=== PATIENT | female | born 1955 | race Caucasian/White ===

== ENCOUNTER 2025-02-08 09:31 | Outpatient (CLI) | payer OTHER, MEDICAID ==
[2025-02-08 10:37] LABS: Actual Bicarbonate (HCO3a) 22.7 mEq/L (22-28); Analyzer IN Cardio CS ER; Base Excess (BEa) -2.0 mEq/L (-2.0 to +3.0); CO2 Tension 38.3 mmHg (35.0-45.0); Calcium, Ionized (arterial) 1.15 mmol/L (1.12-1.30); Hematocrit-ABG 34 % (36.0-47.0); Hemoglobin (Hb) 11.7 g/dL (12.0-16.0); O2 Tension (PaO2), arterial 79.4 mmHg (> 80.0); Potassium - ABG Lab 4.22 mmol/L (3.70-5.30); Puncture Site Right Radial artery; pH, Arterial 7.390 (7.35-7.45)
[2025-02-08 10:39] LABS: ALV-art Gradient 22.455 mmHg (0-20)
== END 2025-02-08 09:32 | disposition home or self-care (01) ==
LOC: CSHCP 09:31
PROVIDERS: ATTEND Internal Medicine
DX: J44.9 Chronic obstructive pulmonary disease, unspecified (principal)
CPT/HCPCS: 82330; 82375; 82805; 82947; 83605; 94010; 94664; 94726; 94729; 94760